=== PATIENT | male | born 1975 | race Caucasian/White ===

== ENCOUNTER 2016-10-15 19:30 | Emergency (ER) | payer OTHER ==
--- NOTE | 2016-10-15 19:37 | PDOC ---
History of Present Illness - General History Source: Patient Exam Limitations: No Limitations - History of Present Illness Initial Comments: 10/15/16 20:06 The patient is a 40 year old male, with no significant past medical history, who presents today with a laceration on the left hand. The patient states that he was attempting to open a new tool kit with a knife when he accidentally stabbed his hand approximately 10 or 15 minutes ago. He came directly from [employer] and did not wash out the cut. He believes his last tetanus shot was around 8 or 9 years ago. Denies any other trauma. Denies fever, chills, nausea, vomiting. Allergies: Cefaclor ROS General: No fevers or chills, no weakness, no weight loss HEENT: No change in vision. No sore throat,. No ear pain CardioVascular: No chest pain or shortness of breath Respiratory:No cough, or wheezing. Gastrointestinal: no nausea, vomiting, diarrhea or constipation, No rectal bleeding Genitourinary: No dysuria, hematuria, or frequency Musculoskeletal: No joint or muscle pain or swelling Neurologic: No headache, vertigo, dizziness or loss of consciousness Psychiatric: nor depression Skin: +laceration on the left hand. No rashes or easy bruising Endocrine: no increased thirst or abnormal weight change Allergic: no skin or latex allergy All other systems reviewed and normal Physical Exam GENERAL: The patient is awake, alert, and fully oriented, in no acute distress. HEAD: Normal with no signs of trauma. EYES: Pupils equal, round and reactive to light, extraocular movements intact, sclera anicteric, conjunctiva clear. LEFT HAND: There is a 4 cm laceration over the web space between the thumb and first finger. There is full ROM and strength of both the thumb and 1st finger. Sensation intact. Vascular is intact. NEUROLOGICAL: Normal speech, normal gait. PSYCH: Normal mood, normal affect. SKIN: Warm, Dry, normal turgor, no rashes or lesions noted. <Ana Dumont - Last Filed: 10/15/16 20:06> - General History Source: Patient Exam Limitations: No Limitations - History of Present Illness Initial Comments: 10/15/16 22:08 A portion of this note was documented by scribe services under my direction. I have reviewed the details of the note, within reason, and agree with the documentation. The case summary and management plan written by me. 10/15/16 22:15 post completion of the initial suturing patient hand suddenly began to swell and bleed profusely between the sutures. Patient's hand was elevated compression was applied and the bleeding was stopped however as soon as pressure was removed it would resume so for the 6 sutures were removed and the bleeder was identified and closed with a total of 3 sutures of 4.0 absorbable suture material. Wound was then packed with Surgicel and pressure dressing was reapplied. After 10 minutes the Surgicel was removed and the wound was observed for additional bleeding. There was minimal oozing at that point and wound was reclosed with 4 more sutures of 4-0 Ethilon. Patient was given Keflex as it had been an extensive repair and he will continue the Keflex for 5 more days to prevent infection. Patient's wound was dressed and a Zachary wrap was applied to give some gentle compression to the wound to keep it from any additional bleeding. Patient tolerated well Patient was instructed to return to the emergency room in 48 hours for reevaluation and a wound check.. <Paris Alvarez I - Last Filed: 10/15/16 22:19> - General Chief Complaint: Injury Stated Complaint: LACERATION OF LEFT HAND Time Seen by Provider: 10/15/16 19:37 Past History <Ana Dumont - Last Filed: 10/15/16 20:06> <Paris Alvarez I - Last Filed: 10/15/16 22:19> - Past Medical History Allergies/Adverse Reactions: Allergies Allergy/AdvReac Type Severity Reaction Status Date / Time No Known Allergies Allergy Verified 10/15/16 22:13 Home Medications: Ambulatory Orders Cephalexin [Keflex] 500 mg PO QID #20 capsule 10/15/16 *Physical Exam - Vital Signs Last Vital Signs Temp Pulse Resp BP Pulse Ox 98.6 F 96 H 16 156/104 97 10/15/16 19:36 10/15/16 19:36 10/15/16 19:36 10/15/16 19:36 10/15/16 19:36 <Ana Dumont - Last Filed: 10/15/16 20:06> Procedures - Laceration/Wound Repair Left Hand Wound Length: 2.6 to 5.0 cm Wound Explored: no foreign body present Irrigated w/ Saline: Yes Wound Repaired With: Sutures Suture Size/Type: 5:0 Number of Sutures: 6 Sterile Dressing Applied: Yes Progress: 10/15/16 20:11 Patient refused local anesthesia. Wound was irrigated with 100 cc of sterile water using sterile pressure. Wound was explored, no foreign body visible. No tendon laceration visible. Wound was closed with 6 interrupted sutures of 5.0 ethilon. Bacitracin and sterile dressing was applied. Patient tolerated well. <Ana Dumont - Last Filed: 10/15/16 20:06> *DC/Admit/Observation/Transfer - Attestations Scribe Attestion: 10/15/16 20:07 Documentation prepared by IZAIAH Santana, acting as medical imaging director for Paris Alvarez MD. <Ana Dumont - Last Filed: 10/15/16 20:06> - Discharge Dispostion Admit: No <Paris Alvarez I - Last Filed: 10/15/16 22:19> Diagnosis at time of Disposition: Hand laceration Qualifiers: Encounter type: initial encounter Foreign body presence: without foreign body Laterality: left Qualified Code(s): S61.412A - Laceration without foreign body of left hand, initial encounter - Discharge Dispostion Disposition: HOME Condition at time of disposition: Good - Prescriptions Prescriptions: Cephalexin [Keflex] 500 mg PO QID #20 capsule - Patient Instructions Printed Discharge Instructions: How to Care for a Laceration After Repair Additional Instructions: Wound care instructions as discussed with the physician. Sutures out in 10-12 days. Tape as shown to give additional support to the laceration during boxing or weight lifting. Return to the emergency department immediately with ANY new, persistent or worsening symptoms. Continue any medications as previously prescribed by your physician. You should follow up with your primary doctor as soon as possible regarding today's emergency department visit. . Please make sure your doctor reviews the results of your emergency evaluation. Thank you for coming to the Emergency Department today for your care. It was a pleasure to see you today. Please note that your evaluation is INCOMPLETE until you follow-up with your doctor.
[2016-10-15 19:44] VITALS: BP 156/104; PULSE 96; TEMP 98.6; BMI 30.4
[2016-10-15] MEDS ORDERED: DIPHTH,PERTUSS(ACELL),TET 0.5 ML DISP.SYRIN IM ONE (20:05)
[2016-10-15] MEDS ORDERED: LIDO 2%/EPI 1:200000 PRESRVFRE (20 ML SDVIAL) ONE (21:13)
[2016-10-15] MEDS ORDERED: CEPHALEXIN MONOHYDRATE 500 MG CAPSULE (UD) ONE (21:50)
[2016-10-15] MEDS ORDERED: CEPHALEXIN MONOHYDRATE 500 MG CAPSULE (UD) PO ONE (22:14)
== END 2016-10-15 22:15 | disposition home or self-care (01) ==
LOC: FER 19:30
PROC: 0HQGXZZ Repair Left Hand Skin, External Approach (ICD-10-PCS; principal; 2016-10-15)
DX: S61.412A Laceration without foreign body of left hand, initial encounter (principal); W26.0XXA Contact with knife, initial encounter; Y93.89 Activity, other specified; Y92.512 Supermarket, store or market as the place of occurrence of the external cause; Y99.0 Civilian activity done for income or pay
CPT/HCPCS: 90715; 99282-25

== ENCOUNTER 2016-10-25 12:45 | Emergency (ER) | payer OTHER ==
--- NOTE | 2016-10-25 13:01 | PDOC ---
Suture Removal/Wound Check HPI - History of Present Illness Chief Complaint: Suture/Staple Removal(Here) Stated Complaint: LEFT HAND SUTURE REMOVAL Time Seen by Provider: 10/25/16 12:58 History Source: Yes: Patient, Old Records Exam Limitations: Yes: No Limitations - Previous ED Treatment Type of procedure performed on last visit: Yes: Laceration Repair - Onset of Previous Treatment Date of Occurence: 10/15/16 Comment:: 10/25/16 13:17 40-year-old male with no significant past medical history presents the emergency department for suture removal status post laceration repair to the left hand on October 15. The patient completed a full course of prophylactic antibiotics for his hand laceration. He denies any pain to the area. He denies any purulent discharge from the wound fevers or chills. Past History - Past Medical History Allergies/Adverse Reactions: Allergies No Known Allergies Allergy (Verified 10/25/16 12:46) Home Medications: Ambulatory Orders Cephalexin [Keflex] 500 mg PO QID #20 capsule 10/15/16 - Immunization History Tetanus Status: More than 5 years - Social History Smoking Status: Never smoked Suture Removal/Wound Check PE - Physical Exam Laceration/Wound Check Symptoms: reports: None Comments: 10/25/16 13:15 The wound appears well approximated with no erythema or purulent drainage. Current Severity Level: None Maximum Severity Level: None Pain Localization: None Location of Laceration/Wound: left: Hand Medical Decision Making - Medical Decision Making 10/25/16 13:18 40 y/o male s/p laceration repair here for suture removal. The sutures were removed without incicent. The wound appears approximated but the epidermal layer is not completely closed--will heal by secondary intention. This was explained to the patient. Wound care was discussed with the patient. *DC/Admit/Observation/Transfer Diagnosis at time of Disposition: Visit for suture removal - Discharge Dispostion Disposition: HOME Condition at time of disposition: Stable Admit: No - Patient Instructions Printed Discharge Instructions: DI for Suture Removal
[2016-10-25 13:26] VITALS: BP 125/70; PULSE 77; TEMP 98; BMI 23.7
== END 2016-10-25 13:26 | disposition home or self-care (01) ==
LOC: FER 12:45
DX: Z48.02 Encounter for removal of sutures (principal)
CPT/HCPCS: 99281-25